=== PATIENT | female | born 1960 | race Caucasian/White ===

== ENCOUNTER 2024-04-15 10:58 | Outpatient (RCR) | payer MEDICAID, SELFPAY ==
--- NOTE | 2024-04-17 18:34 | CTCFLWUP_ITS ---
Patient: GORGE CEJA : 1960 Page 7 of 7 FOLLOW UP NOTE DATE OF SERVICE: 04/15/2024 NAME: GORGE CEJA ACCOUNT: [id number] : 1960 AGE: 63 DIAGNOSIS: Recent right thyroid middle lobe biopsy suspicious for follicular neoplasm (IV) Status post thyroid surgery in [place]. 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 REASON FOR TODAY?S VISIT: This is office follow-up visit. Ms. Ceja is here at [facility]. She is clinically doing very well. Denies any complaints. Denies any co ugh, chest pain, abdominal pain or leg cramps. Ambulating with the help of a walker. Has good appet ite and good energy levels. Recent CT scan of the abdomen and pelvis with IV contrast was negative f or recurrence. HISTORY OF PRESENT ILLNESS: Gorge Ceja is a 63-year-old ENG speaking female with hi story of hypertension has been having postmenopausal spotting since March 2019. She had Pap smear s done about 30 years ago. 09/01/2019 patient had vaginal examination and Pap smear done. A 4 cm cervical mass involving the righ t portion of the cervix and the anterior lip of the cervix was noted. Biopsies taken from the cervix showed squamous cell carcinoma with focal early invasion. Carcinoma extends into underlying crypts? glands. Tumor was P 16+. 09/29/2019 patient was seen by radiation oncologist Dr. Andres here at our cancer center. 10/13/2019: CT scan of the abdomen and pelvis with IV contrast? 10/23/2019: PET CT scan? 11/01/2019?12/24/2019: Patient was treated with chemoradiation. For chemotherapy she received 6 weekly doses of cisplatin. She received 5040 cGy of radiation. Brachii therapy to be scheduled by Dr. Andres. 03/02/2020?03/03/2020: Patient had brachytherapy at [facility]. 05/12/2020: PET CT scan? 06/27/2020: CT scan of the abdomen and pelvis with IV contrast? 02/13/2021: CT scan of the abdomen and pelvis with IV contrast? 11/16/2021: CT scan of the chest abdomen and pelvis? 05/15/2022: CT scan of the chest abdomen and pelvis with IV contrast? 06/06/2022: Thyroid ultrasound 06/21/2022: I-123 nuclear thyroid scan? 09/19/2022: Sono-guided fine-needle aspiration of the right thyroid nodule?primary?follicular neoplasm ([place] category 4) 11/28/2022: CT chest w con 11/28/2022: CT soft tissue neck w con 01/10/2023: PET/CT scan? 02/04/2023: Right thyroid lobectomy? 09/24/2023: CT scan of the abdomen and pelvis with IV contrast PAST MEDICAL HISTORY: tia???cervical??ca??hbp PAST SURGICAL HISTORY: gallbladder MEDICATIONS: 1. calcium - 600 mg 1 Capsule Daily 2. Flexeril - 10 mg 1 tab Every day before sleep 3. gabapentin - 300 mg Daily 4. losartan-hydrochlorothiazide - 100-25 mg 1 tab Daily 5. Pepcid - 20 mg 1 tab Twice a Day 6. Vitamin D3 - 400 unit 1 Capsule Weekly?Palabra Meds? Medications Last Reconciled by Alejandra Moses MA on 10/14/2023 ALLERGIES: Penicillin V REVIEW OF SYSTEMS:?Clone ROS? Neurological: No headache, seizures or blurring of vision. Gastrointestinal: No nausea, vomiting, diarrhea or constipation. Cardiovascular: No palpitations or angina pains. Respiratory: No cough, chest pain or shortness of breath. PHYSICAL EXAMINATION:?ClonePE? VITAL SIGNS: A and O times 4 Neck is supple. No adenopathy in the neck, axillary and inguinal region. Chest clear to auscultation. No wheezes or rails audible. CVS rhythm regular. Abdomen is soft. No hepatosplenomegaly palpable. No areas of tenderness present. Extremities no cl ubbing or cyanosis. ASSESSMENT and Plan : 1. 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 Status post chemoradiation as described above. Benign multinodular thyroid s/p right lobe thyroidectomy. Recent PET CT scan on 01/10/2023 did not show any metastatic disease. 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 ([place] 4). Recent CT scan of the chest abdomen and pelvis with contrast (05/15/2022) did not show any evidence o f metastatic disease. No clinical or radiological evidence of recurrence of her cervix cancer. 2. Hypertension 3. Acid reflux issues clinic in 3 months with labs for follow-up Electronically Signed by: Vida {Object.Sanct_ID*PnP.NameFL@M}, {Object.Sanct_ID*PnP.Suffix@U} D: {Object.Sanct_Date} T: {Object.Sanct_Time} CC: Cristina?Geovani,? PCP: Cristina Olivo Referring: Cristina Olivo This document was completed utilizing speech recognition software. Grammatical errors, random word in sertions, pronoun errors, and incomplete sentences are an occasional consequence of this system due t o software limitations, ambient noise, and hardware issues. Any formal questions or concerns about th e content, text or information contained within the body of this dictation should be directly address ed to the provider for clarification.
== END 2024-04-24 23:59 | disposition home or self-care (01) ==
LOC: SCTC 10:58
PROVIDERS: PCP Family Medicine; Referring Provider Family Medicine; Visit Provider Internal Medicine Hematology & Oncology
DX: Z08 Encounter for follow-up examination after completed treatment for malignant neoplasm (principal); Z85.41 Personal history of malignant neoplasm of cervix uteri; Z92.3 Personal history of irradiation; E89.0 Postprocedural hypothyroidism; I10 Essential (primary) hypertension; K21.9 Gastro-esophageal reflux disease without esophagitis
CPT/HCPCS: 99212; G0463

== ENCOUNTER 2024-07-15 10:55 | Outpatient (RCR) | payer MEDICAID, SELFPAY ==
--- NOTE | 2024-07-15 15:10 | CTCFLWUP_ITS ---
Patient: VICTORIA CEJA : 1960 Page 2 of 2 FOLLOW UP NOTE DATE OF SERVICE: 07/15/2024 NAME: VICTORIA CEJA ACCOUNT: [id number] : 1960 AGE: 64 INTERVAL HISTORY: No new complaints concerning for recurrence ONCOLOGY HISTORY: DIAGNOSIS: Malignant neoplasm of overlapping sites of cervix uteri [ICD10] C53.8 -Recent right thyroid middle lobe biopsy suspicious for follicular neoplasm (IV) Status post thyroid surgery in [place]. 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 completed on 03/03/2020. 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 completed on 03/03/2020. TREATMENT HISTORY: Care?Plan Start?Date Cycle Day Intent CISplatin?40?mg/m*2?+?Radiation?Therapy?-?Primary,?Adj,?Rec 11/01/2019 1 7 Definitive HISTORY OF PRESENT ILLNESS: Victoria Ceja is a 64-year-old ENG speaking female with history of hypertension has been having postmenopausal spotting since March 2019. She had Pap smears done about 30 years ago. 09/01/2019 patient had vaginal examination and Pap smear done. A 4 cm cervical mass involving the right portion of the cervix and the anterior lip of the cervix was noted. Biopsies taken from the cervix showed squamous cell carcinoma with focal early invasion. Carcinoma extends into underlying crypts?glands. Tumor was P 16+. 09/29/2019 patient was seen by radiation oncologist Dr. Andres here at our cancer center. 10/13/2019: CT scan of the abdomen and pelvis with IV contrast? 10/23/2019: PET CT scan? 11/01/2019?12/24/2019: Patient was treated with chemoradiation. For chemotherapy she received 6 weekly doses of cisplatin. She received 5040 cGy of radiation. Brachii therapy to be scheduled by Dr. Andres. 03/02/2020?03/03/2020: Patient had brachytherapy at [facility]. 05/12/2020: PET CT scan? 06/27/2020: CT scan of the abdomen and pelvis with IV contrast? 02/13/2021: CT scan of the abdomen and pelvis with IV contrast? 11/16/2021: CT scan of the chest abdomen and pelvis? 05/15/2022: CT scan of the chest abdomen and pelvis with IV contrast? 06/06/2022: Thyroid ultrasound 06/21/2022: I-123 nuclear thyroid scan? 09/19/2022: Sono-guided fine-needle aspiration of the right thyroid nodule?primary?follicular neoplasm ([place] category 4) 11/28/2022: CT chest w con 11/28/2022: CT soft tissue neck w con 01/10/2023: PET/CT scan? 02/04/2023: Right thyroid lobectomy? 09/24/2023: CT scan of the abdomen and pelvis with IV contrast OTHER MEDICAL HISTORY/CONDITIONS: FAMILY HISTORY: ?Clone Family Hx? 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 amlodipine - 5 mg 1 tab Daily 2. calcium - 600 mg 1 Capsule Daily 3. Flexeril - 10 mg 1 tab Every day before sleep 4. gabapentin - 300 mg Daily 5. losartan-hydrochlorothiazide - 100-25 mg 1 tab Daily 6. omeprazole - 20 mg 1 Capsule Daily 7. vitamin D3-vitamin K2 - 125 mcg (5,000 unit)-100 mcg 1 Capsule Daily?Palabra Meds? Medications Last Reconciled by Shabnam Jennings MA on 07/15/2024 ALLERGIES: Penicillin V REVIEW OF SYSTEMS: A complete 14-point review of systems was performed and is negative except as noted in interval history. PHYSICAL EXAMINATION: VITAL SIGNS: Temperature?97.9, B/P?133/85, Oxygen?Saturation?97% Weight?223?lbs PAIN: 0 - No pain ECOG Performance Status: 0 - Asymptomatic and fully active GENERAL APPEARANCE: Appears well, in no apparent distress, appropriately interactive. HEENT: Normocephalic, no temporal wasting, normal conjunctiva, no scleral icterus, normal hearing, lips without lesions, neck normal range of motion. CARDIOVASCULAR: Not assessed. PULMONARY: Normal respiratory effort, no respiratory distress or use of accessory muscles, speaking in full sentences, no tachypnea. EXTREMITIES: No pedal edema or cyanosis. SKIN: Normal skin appearance. NEUROLOGIC: Alert and oriented x4. PSHYCHIATRIC: Appropriate affect, mood normal, behavior normal, intact thought and speech. 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 Status post chemoradiation as described above. Benign multinodular thyroid s/p right lobe thyroidectomy. Recent PET CT scan on 01/10/2023 did not show any metastatic disease. 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 ([place] 4). Recent CT scan of the chest abdomen and pelvis with contrast (05/15/2022) did not show any evidence of metastatic disease. No clinical or radiological evidence of recurrence of her cervix cancer. 09/24/2023 CT scan chest abdomen pelvis negative for any interval metastatic disease Clinically no evidence of recurrence Advised to follow-up with gynecology for pelvic examination Discussed risk of vagina as well as anal HPV positive cancer Referral placed to gynecology Hypertension Acid reflux issues ORDERS: CT scan chest abdomen pelvis with IV contrast ordered Referral placed for gynecology for pelvic exam CBC CMP CA125 RETURN TO CLINIC: In 6 months BILLING AND COMPLIANCE: I reviewed external records from providers outside my specialty as summarized above. I spent a total of 50 minutes on this patient?s care on the day of their visit excluding time spent related to any billed procedures. This time includes time spent with the patient as well as time spent documenting in the medical record, reviewing patients records and tests, obtaining history, placing orders, communicating with other healthcare professionals, counseling the patient, family or caregiver, and/or care coordination for the diagnoses above. Electronically Signed by: Gianni Mcpherson MD T: 3:08 PM CC: Cristina?Geovani,? PCP: Risa Whitehead Referring: Risa Whitehead This document was completed utilizing speech recognition software. Grammatical errors, random word insertions, pronoun errors, and incomplete sentences are an occasional consequence of this system due to software limitations, ambient noise, and hardware issues. Any formal questions or concerns about the content, text or information contained within the body of this dictation should be directly addressed to the provider for clarification.
== END 2024-07-23 23:59 | disposition home or self-care (01) ==
LOC: SCTC 10:55
PROVIDERS: PCP Family Medicine; Referring Provider Family Medicine; Visit Provider Internal Medicine Hematology & Oncology
DX: Z08 Encounter for follow-up examination after completed treatment for malignant neoplasm (principal); Z85.41 Personal history of malignant neoplasm of cervix uteri; I10 Essential (primary) hypertension; K21.9 Gastro-esophageal reflux disease without esophagitis; Z92.21 Personal history of antineoplastic chemotherapy; Z92.3 Personal history of irradiation
CPT/HCPCS: 99212; G0463

== ENCOUNTER → 2024-08-06 | Outpatient (CLI) | payer MEDICAID, SELFPAY ==
--- NOTE | 2024-08-06 16:00 | XR_ITS ---
Examination: CT chest with intravenous contrast CT abdomen with intravenous contrast CT pelvis with intravenous contrast 2-D coronal and sagittal reconstructions Time of exam: August 06, 2024 at [address] chest February 2024, CT abdomen September 23, 2023 Indications: Diagnosis malignant neoplasm cervix uterus diagnosis 2020, undergoing chemotherapy 6 months, 2 mm pulmonary nodule lingular segment left upper lobe on CT chest February 2024 CTDI: vol (mGy) : 30.41 DLP: (mGycm): 1280 Technique: Multiple axial images of the chest, abdomen and pelvis with intravenous contrast, 3.0 mm slice thickness. Images obtained post intravenous injection Isovue 370 60 cc. 2-D sagittal and coronal reconstructions. Low dose protocols were performed. One or more of the following dose reduction techniques were used; automated exposure control, adjustment of the mA and/or KV according to patient size, use of iterative reconstruction technique. Findings: Thoracic aortic calcification no aneurysmal dilatation No pulmonary artery filling defects No mediastinal lymphadenopathy 6 mm soft pulmonary nodule right upper lobe image 164 Stable 2 mm pulmonary nodule anterior segment No pneumonia or pulmonary edema Retrocardiac gastric hernia Stable right lobe liver cyst Splenomegaly AP dimension 14 cm No pancreatic mass Liver is mildly irregular in contour Atrophic left kidney with significant scarring Abdominal aortic calcification no effervescent dilatation 25 mm fat-containing umbilical hernia Colonic diverticulosis. Atrophic uterus No pathologic abdominal or pelvic lymphadenopathy Urinary bladder intact Severe osteopenia with chronic compression Impression: New 6 mm pulmonary nodule right upper lobe compared to CT chest March 02, 2024, recommend continued 6 month follow-up CT chest without contrast Mild splenomegaly No interval abdominal or pelvic lymphadenopathy
== END | disposition home or self-care (01) ==
PROVIDERS: Referring Provider Internal Medicine Hematology & Oncology; Visit Provider Internal Medicine Hematology & Oncology
DX: R91.1 Solitary pulmonary nodule (principal); R16.1 Splenomegaly, not elsewhere classified; C53.8 Malignant neoplasm of overlapping sites of cervix uteri
CPT/HCPCS: 71260; 74177; A4649; Q9967

== ENCOUNTER 2024-08-30 09:44 | Emergency (ER) | payer MEDICAID, SELFPAY ==
[2024-08-30 09:45] VITALS: BMI 32.8
[2024-08-30 10:00] VITALS: BP 146/89; PULSE 109; RESP 16; TEMP 36.6; O2SAT 98
--- NOTE | 2024-08-30 10:10 | XR_ITS ---
Examination: Duplex scan of the lower extremity, unilateral right complete Date and time of exam: August 30, 2024 1057 hours INDICATIONS: Right lower leg swelling and pain beginning 4 days ago Technique: Duplex scan of the extremity veins using B-mode/grayscale imaging and Doppler spectral analysis and color flow Attention is directed to internal echogenicity, compression and augmentation involving these veins, color flow assessment, spectral analysis Findings: Major deep venous structures in the extremity demonstrate normal course and caliber. There is no evidence of deep vein thrombosis. Normal color flow and spectral analysis Impression: Negative for DVT..
--- NOTE | 2024-08-30 10:11 | PD.EDRME ---
Rapid Medical Screening Exam E Arrival date/time: 08/30/24 09:44 64-year-old female with a history of hypertension presents to the emergency room with a chief complaint of right lower extremity swelling and pain behind her right knee. Patient states she was sent over by her primary care provider to rule out a DVT. I have greeted and performed a focused initial assessment of this patient. A comprehensive ED assessment and evaluation of the patient, analysis of all test results, and completion of the medical decision making process will be conducted by additional ED providers. Chief Complaint: Extremity Injury, Lower Time Seen by Provider: 08/30/24 10:11 Vital signs: Vital Signs Temperature 97.9 F 08/30/24 10:00 Pulse Rate 109 H 08/30/24 10:00 Respiratory Rate 16 08/30/24 10:00 Blood Pressure 146/89 H 08/30/24 10:00 Pulse Oximetry (%) 98 08/30/24 10:00 Oxygen Delivery Method Room Air 08/30/24 10:00 Vital signs reviewed by provider: Yes
--- NOTE | 2024-08-30 10:55 | PC.NURSE ---
CALLED FROM LOBBY AND NO ANSWER
--- NOTE | 2024-08-30 11:04 | PC.NURSE ---
CALLED FROM LOBBY AND NO ANSWER. PT NOT FOUND OUTSIDE THE E.D. OR IN THE E.D. LOBBY
[2024-08-30 11:17] LABS: Basophils % (Auto) 1 % (0-2.5); Eosinophils % (Auto) 1 % (0-10); Immature Granulocytes % (Auto) 0 % (0-0); Immature Granulocytes Auto 0.01 Thou/mm3 (0.00-0.00); Lymphocytes % (Auto) 22 % (10-50); Mean Corpuscular HGB Conc 31.7 g/dl (31.0-37.0); Mean Corpuscular Hemoglobin 28.1 pg (25.0-35.0); Mean Corpuscular Volume 89 fL (80-100); Monocytes # (Auto) 0.2 Thou/mm3 (0.0-0.8); Monocytes % (Auto) 5 % (0-12); Neutrophils # (Auto) 3.4 Thou/mm3 (1.8-7.7); Neutrophils % (Auto) 72 % (37-80); Nucleated Red Blood Cell % 0 /100 WBC (0); Platelet Count 217 Thou/mm3 (140-440); RDW Standard Deviation 53.1 fL (36.4-46.3); Red Blood Count 4.62 Miln/mm3 (4.00-5.20); White Blood Count 4.7 Thou/mm3 (3.6-11.0)
[2024-08-30 11:20] VITALS: BP 138/84; PULSE 102; RESP 16; TEMP 36.7; O2SAT 99
--- NOTE | 2024-08-30 11:24 | EDNOTE_ITS ---
<Statement entered by Eli Cantor MD - 08/30/24 17:53> As co-signing physician, I was present and available for consult prn. I concur with the plan and care as documented by the midlevel provider. ED General RME/HPI General Chief complaint: Extremity Injury, Lower Stated complaint: SENT BY PCP R/O BLOOD CLOT TO RLE Time Seen by Provider: 08/30/24 10:11 Arrival date/time: 08/30/24 09:44 This is The ankle with mild swelling and mild calf tenderness HPI ongoing for the past week denies fever chills shortness of breath difficulty breathing is no pain in the left leg. RME / HPI RME / HPI narrative: 08/30/24 09:44 64-year-old female with a history of hypertension presents to the emergency room with a chief complaint of right lower extremity swelling and pain behind her right knee. Patient states she was sent over by her primary care provider to rule out a DVT. I have greeted and performed a focused initial assessment of this patient. A comprehensive ED assessment and evaluation of the patient, analysis of all test results, and completion of the medical decision making process will be conducted by additional ED providers. Related Data Home Medications ?Medication ?Instructions ?Recorded ?Confirmed calcium carbonate 600 mg PO QDAY 07/10/2206/26 cyclobenzaprine 10 mg tablet 10 mg PO TID PRN Spasms 0 07/10/22 07/10/22 ergocalciferol (vitamin D2) 1,250 50,000 unit PO QWEEK 07/10/22 07/10/22 mcg (50,000 unit) capsule famotidine 20 mg tablet (Pepcid AC) 20 mg PO BID PRN s tomach acid 07/10/22 07/10/22 gabapentin 300 mg capsule 300 mg PO TID PRN Pain 07/1007/10/22 losartan 50 mg-hydrochlorothiazide 1 tab PO QDAY 07/1007/10/22 12.5 mg tablet Allergies Allergy/AdvReac Type Severity Reaction Status Date / Time fentanyl AdvReac Intermediate Vomiting Verified 08/30/24 09:45 Review of Systems Review of Systems Narrative Review of Systems: GEN: No fever, no chills, no weight loss EYES: No discharge, no visual changes, no pain HEENT: No ear pain, no congestion, no sore throat PULM: No shortness of breath, no cough, no congestion CV: No chest pain, no dyspnea on exertion, no palpitations GI: No nausea, no vomiting, no diarrhea, no pain, no constipation : No frequency, no urgency, no dysuria MUSC/SKEL: No joint pain, no back pain,+swelling SKIN: No rash PSYCH: No hallucinations, no depression HEME/LYMPH: No easy bleeding or bruising tendencies NEURO: No weakness, no headache ED Exam Narrative Physical exam: [General: Obese not in any acute distress Head normocephalic HEENT: Within acceptable limits Neck is supple nontender Chest equal chest rise nontender to palpation Respiratory: Clear to auscultation no wheezes crackles or rubs CV: Rate rhythm is regular no murmurs rubs or clicks Back: No CVA tenderness no spinous process tenderness from cervical spine thoracic and lumbar spine Skin: Intact no petechiae rash induration ulceration or crepitus Extremities: Right lower extremity patient has very minor edema to the anterior portion of the ankle, very mild tenderness to the calf. no posterior fossa tenderness with palpation full range of motion cap refills less than 2 seconds neurosensory intact no edema in the dorsum of the foot. Moving all extremity against resistance cap refill less than 2 seconds neurosensory intact Neuro: Awake alert oriented x3 Glascow coma 15 no focal deficits] Course Quality Measures none Orders Category Date Time Status US venous doppler LE RT Stat Exams 08/30/24 10:10 Taken CBC Stat Lab 08/30/24 10:14 Completed CMP [Comprehensive Metabolic Panel] Stat Lab 08/30/24 10:14 Completed PT [Prothrombin Time with INR] Stat Lab 08/30/24 10:14 Completed PTT [Partial Thromboplastin Time] Stat Lab 08/30/24 10:14 Completed Vital Signs Vital signs: Vital Signs Temperature 97.9 F 08/30/24 10:00 Pulse Rate 109 H 08/30/24 10:00 Respiratory Rate 16 08/30/24 10:00 Blood Pressure 146/89 H 08/30/24 10:00 Pulse Oximetry (%) 98 08/30/24 10:00 Oxygen Delivery Method Room Air 08/30/24 10:00 [facility] Patient data External records reviewed:: [facility] previous records Clinical information provided by:: patient Social determinants that could affect healthcare access:: none Patient has the following chronic illnesses:: Hypertension How is presenting disease/condition affected by chronic disease/condition?: u neffected by Evaluation data The following diagnostics were reviewed and interpreted by me:: lab results and radiology exam(s) Lab and/or radiology exams considered but not ordered:: CBC shows no acute leukocytosis anemia thrombocytopenia Coags within acceptable limits CMP shows no significant electrolyte imbalances renal impairment transaminitis or T. bili elevation Ultrasound is negative for DVT. Interpretation Summary: No acute finding will discharge the patient home with very minor lower extremity swelling. Medications Medications considered but not ordered:: None Medication administrations:: None Consultations Consultation(s) initiated? (list below): No Diagnosis Differential Diagnosis ED Complaint MDM: DVT cellulitis lower extremity edema Most likely diagnosis given after review of the tests above:: Ankle edema Admission Indicated Admission indicated?: not indicated Explain why admission is indicated or not indicated:: Stable for discharge Admission Request Was there a request for admission?: No Disposition Plan Disposition Plan: Discharge Discharge Attestation Discharge Attestation: The patient and all family members were given an opportunity to ask questions and understood the discharge instructions. Discharge instructions specifically effects, indications for sooner follow up or return to the emergency department, and the expected course of current diagnosis. Patient condition: Stable Medical Decision Making Differential Diagnosis Differential Diagnosis: DVT cellulitis lower extremity edema Lab Data 08/30/24 10:14 08/30/24 10:14 Labs: Lab Results 08/30/24 Range/Units 10:14 WBC 4.7 (3.6-11.0) Thou/mm3 RBC 4.62 (4.00-5.20) Miln/mm3 Hgb 13.0 (12.0-16.0) g/dL Hct 41.0 (36.0-46.0) % MCV 89 (80-100) fL MCH 28.1 (25.0-35.0) pg MCHC 31.7 (31.0-37.0) g/dl RDW Std Deviation 53.1 H (36.4-46.3) fL Plt Count 217 (140-440) Thou/mm3 Neut % (Auto) 72 (37-80) % Lymph % (Auto) 22 (10-50) % [place] % (Auto) 5 (0-12) % Eos % (Auto) 1 (0-10) % Baso % (Auto) 1 (0-2.5) % Neut # (Auto) 3.4 (1.8-7.7) Thou/mm3 Lymph # (Auto) 1.0 (1.0-4.8) Thou/mm3 [place] # (Auto) 0.2 (0.0-0.8) Thou/mm3 Eos # (Auto) 0.0 (0.0-0.5) Thou/mm3 Baso # (Auto) 0.0 (0.0-0.2) Thou/mm3 Immature Gran # (Auto) 0.01 H (0.00-0.00) Thou/mm3 Absolute Nucleated RBC 0.00 (0.00-0.00) Thou/mm3 Immature Gran % 0 (0-0) % Nucleated RBC % 0 (0) /100 WBC PT 11.2 (9.0-12.2) Seconds INR 1.0 (0.9-1.3) APTT 27.3 (22.0-36.0) Seconds Sodium 141 (136-145) mMol/L Potassium 3.6 (3.4-5.1) mMol/L Chloride 100 (98-107) mMol/L Carbon Dioxide 30.1 (20.0-31.0) mMol/L Anion Gap 11 (7-16) BUN 7 L (9-23) mg/dL Creatinine 0.9 (0.6-1.3) mg/dL Estim Creat Clear Calc 81.9 (>60) mL/min eGFR > 60 (60 - ) See Note BUN/Creatinine Ratio 8 L (12-20) Ratio Glucose 114 H (74-106) mg/dL Calculated Osmolality 280 (275-295) Calcium 10.0 (8.3-10.6) mg/dL Corrected Calcium 10.0 (8.5-10.1) mg/dL Total Bilirubin 0.3 (0.3-1.2) mg/dL AST 14 (0-34) U/L ALT 8 L (10-49) U/L Alkaline Phosphatase 96 (46-116) U/L Total Protein 7.4 (5.7-8.2) gm/dL Albumin 4.2 (3.4-4.8) gm/dL Globulin 3.2 (2.3-3.5) gm/dL Albumin/Globulin Ratio 1.3 (1.2-2.2) Discharge Plan Plan Patient Disposition: HOME (Self Care) Patient condition on transfer: Stable Prescriptions/Referrals Prescriptions/Med Rec: No Action cyclobenzaprine 10 mg tablet 10 mg PO TID PRN (Reason: Spasms) Patient Comments: TAKE 1 TABLET BY MOUTH THREE TIMES A DAY NEEDED FOR MUSCULAR PAIN calcium carbonate 600 mg calcium (1,500 mg) tablet 600 mg PO QDAY Patient Comments: TAKE 1 TABLET BY MOUTH EVERY DAY gabapentin 300 mg capsule 300 mg PO TID PRN (Reason: Pain) ergocalciferol (vitamin D2) 1,250 mcg (50,000 unit) capsule 50,000 unit PO QWEEK Patient Comments: TAKE ONE CAPSULE VIA ORAL ROUTE ONCE A WEEK. Rx Instructions: Sundays. losartan-hydrochlorothiazide 50-12.5 mg tablet 1 tab PO QDAY Patient Comments: TAKE 1 TABLET BY MOUTH EVERY DAY famotidine [Pepcid AC] 20 MG tablet 20 mg PO BID PRN (Reason: stomach acid) Referrals: Fabrice Maxwell MD [Primary Care Provider] - In 1 week Problem List Clinical Impression: Ankle edema Patient/Caregiver Discharge Instructions Print Language: [place] Stand Alone Forms: Pepper Award Info., Patient Portal Info Letter PA/ACCOUNTING INTERN Supervising Physician PA/ACCOUNTING INTERN Supervising Physician: Junior Araujo ENP
[2024-08-30 11:27] LABS: Partial Thromboplastin Time 27.3 Seconds (22.0-36.0); Prothrombin Time 11.2 Seconds (9.0-12.2)
[2024-08-30 11:41] LABS: Alanine Aminotransferase 8 U/L (10-49); Albumin, Serum 4.2 gm/dL (3.4-4.8); Albumin/Globulin Ratio 1.3 (1.2-2.2); Alkaline Phosphatase 96 U/L (46-116); Anion Gap 11 (7-16); Aspartate Amino Transferase 14 U/L (0-34); BUN/Creatinine Ratio 8 Ratio (12-20); Bilirubin,Total 0.3 mg/dL (0.3-1.2); Blood Urea Nitrogen 7 mg/dL (9-23); Carbon Dioxide 30.1 mMol/L (20.0-31.0); Chloride 100 mMol/L (98-107); Creatinine (Component) 0.9 mg/dL (0.6-1.3); Estimated Creatinine Clearance 81.9 mL/min (>60); Globulin 3.2 gm/dL (2.3-3.5); Glucose 114 mg/dL (74-106); Osmolality,Calculated 280 (275-295); Potassium 3.6 mMol/L (3.4-5.1); Sodium 141 mMol/L (136-145); Total Protein 7.4 gm/dL (5.7-8.2); eGFR > 60 See Note
== END 2024-08-30 12:28 | disposition home or self-care (01) ==
PROVIDERS: Nurse Practitioner Family; Emergency Provider Emergency Medicine; PCP Student in an Organized Health Care Education/Training Program
DX: R60.0 Localized edema (principal)
CPT/HCPCS: 36415; 80053; 85025; 85610; 85730; 93971; 99284

== ENCOUNTER 2025-01-12 11:24 | Outpatient (RCR) | payer MEDICAID, SELFPAY ==
[2025-01-11 14:54] LABS: Basophils # (Auto) 0.0 Thou/mm3 (0.0-0.2); Basophils % (Auto) 0 % (0-2.5); Eosinophils # (Auto) 0.1 Thou/mm3 (0.0-0.5); Eosinophils % (Auto) 2 % (0-10); Hematocrit 35.2 % (36.0-46.0); Hemoglobin 11.0 g/dL (12.0-16.0); Immature Granulocytes Auto 0.01 Thou/mm3 (0.00-0.00); Lymphocytes # (Auto) 1.2 Thou/mm3 (1.0-4.8); Lymphocytes % (Auto) 25 % (10-50); Mean Corpuscular HGB Conc 31.3 g/dl (31.0-37.0); Mean Corpuscular Hemoglobin 28.1 pg (25.0-35.0); Mean Corpuscular Volume 90 fL (80-100); Monocytes # (Auto) 0.3 Thou/mm3 (0.0-0.8); Monocytes % (Auto) 7 % (0-12); Neutrophils # (Auto) 3.0 Thou/mm3 (1.8-7.7); Neutrophils % (Auto) 66 % (37-80); Nucleated Red Blood Cell # 0.00 Thou/mm3 (0.00-0.00); Nucleated Red Blood Cell % 0 /100 WBC (0); Platelet Count 188 Thou/mm3 (140-440); RDW Standard Deviation 53.6 fL (36.4-46.3); Red Blood Count 3.91 Miln/mm3 (4.00-5.20); White Blood Count 4.6 Thou/mm3 (3.6-11.0)
[2025-01-11 15:25] LABS: Alanine Aminotransferase < 7 U/L (10-49); Albumin, Serum 3.9 gm/dL (3.4-4.8); Albumin/Globulin Ratio 1.6 (1.2-2.2); Alkaline Phosphatase 79 U/L (46-116); Anion Gap 9 (7-16); Aspartate Amino Transferase 12 U/L (0-34); BUN/Creatinine Ratio 14 Ratio (12-20); Bilirubin,Total 0.3 mg/dL (0.3-1.2); Blood Urea Nitrogen 11 mg/dL (9-23); Calcium 9.5 mg/dL (8.3-10.6); Calcium (Corrected) 9.6 mg/dL (8.5-10.1); Carbon Dioxide 29.4 mMol/L (20.0-31.0); Chloride 100 mMol/L (98-107); Creatinine (Component) 0.8 mg/dL (0.6-1.3); Globulin 2.5 gm/dL (2.3-3.5); Glucose 143 mg/dL (74-106); Osmolality,Calculated 277 (275-295); Potassium 3.4 mMol/L (3.4-5.1); Sodium 138 mMol/L (136-145); Total Protein 6.4 gm/dL (5.7-8.2); eGFR > 60 See Note
[2025-01-11 15:33] LABS: CA 125 7.0 U/mL (<30.2)
--- NOTE | 2025-01-12 14:30 | CTCFLWUP_ITS ---
Patient: GORGE CEJA : 1960 Page 6 of 8 FOLLOW UP NOTE DATE OF SERVICE: 01/12/2025 NAME: GORGE CEJA ACCOUNT: [id number] : 1960 AGE: 64 INTERVAL HISTORY: No new complaints concerning for recurrence. Patient was seen by doughnut icer but per patient was not physically examined. Patient is asking for referral to another doughnut icer. She says she was seen by physician radiology assistant who never examined her. ONCOLOGY HISTORY: DIAGNOSIS: Malignant neoplasm of overlapping sites of cervix uteri [ICD10] C53.8 -Recent right thyroid middle lobe biopsy suspicious for follicular neoplasm (IV) Status post thyroid surgery in [place]. 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 TREATMENT HISTORY: Care?Plan Start?Date Cycle Day Intent CISplatin?40?mg/m*2?+?Radiation?Therapy?-?Primary,?Adj,?Rec 11/01/2019 1 7 Definitive HISTORY OF PRESENT ILLNESS: Gorge Ceja is a 64-year-old ENG speaking female with history of hypertension has been having postmenopausal spotting since March 2019. She had Pap smears done about 30 years ago. 09/01/2019 patient had vaginal examination and Pap smear done. A 4 cm cervical mass involving the right portion of the cervix and the anterior lip of the cervix was noted. Biopsies taken from the cervix showed squamous cell carcinoma with focal early invasion. Carcinoma extends into underlying crypts?glands. Tumor was P 16+. 09/29/2019 patient was seen by radiation oncologist Dr. Mckenna abarca at our cancer center. 10/13/2019: CT scan of the abdomen and pelvis with IV contrast? 10/23/2019: PET CT scan? 11/01/2019?12/24/2019: Patient was treated with chemoradiation. For chemotherapy she received 6 weekly doses of cisplatin. She received 5040 cGy of radiation. Brachii therapy to be scheduled by Dr. Andres. 03/02/2020?03/03/2020: Patient had brachytherapy at [facility]. 05/12/2020: PET CT scan? 06/27/2020: CT scan of the abdomen and pelvis with IV contrast? 02/13/2021: CT scan of the abdomen and pelvis with IV contrast? 11/16/2021: CT scan of the chest abdomen and pelvis? 05/15/2022: CT scan of the chest abdomen and pelvis with IV contrast? 06/06/2022: Thyroid ultrasound 06/21/2022: I-123 nuclear thyroid scan? 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 02/04/2023: Right thyroid lobectomy? 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 amlodipine - 5 mg 1 tab Daily 2. Flexeril - 10 mg 1 tab Every day before sleep 3. gabapentin - 300 mg Every day before sleep 4. losartan-hydrochlorothiazide - 100-25 mg 1 tab Daily 5. omeprazole - 20 mg 1 Capsule Daily 6. vitamin D3-vitamin K2 - 125 mcg (5,000 unit)-100 mcg 1 Capsule Daily Medications Last Reconciled by Shabnam Jennings MA on 01/12/2025 ALLERGIES: fentanyl citrate REVIEW OF SYSTEMS: A complete 14-point review of systems was performed and is negative except as noted in interval history. PHYSICAL EXAMINATION: VITAL SIGNS: Temperature?99, B/P?126/75, Oxygen?Saturation?96% Weight?234?lbs (Change?since?01/11/25:?-0.2?lbs) PAIN: 0 - No pain ECOG Performance Status: None GENERAL APPEARANCE: Appears well, in no apparent distress, appropriately interactive. HEENT: Normocephalic, no temporal wasting, normal conjunctiva, no scleral icterus, normal hearing, lips without lesions, neck normal range of motion. CARDIOVASCULAR: Not assessed. PULMONARY: Normal respiratory effort, no respiratory distress or use of accessory muscles, speaking in full sentences, no tachypnea. EXTREMITIES: No pedal edema or cyanosis. SKIN: Normal skin appearance. NEUROLOGIC: Alert and oriented x4. PSHYCHIATRIC: Appropriate affect, mood normal, behavior normal, intact thought and speech. LABORATORY DATA: I have personally reviewed and interpreted each of the patient?s relevant lab tests, abnormal findings are below: Date 08/30/24 01/11/25 ??WHITE?BLOOD?COUNT?(Thou/mm3) ? 4.6 ??RED?BLOOD?COUNT?(Miln/mm3) ? 3.91?L ??HEMOGLOBIN?(gm/dl) ? 11.0?L ??HEMATOCRIT?(%) ? 35.2?L ??PLATELET?COUNT?(Thou/mm3) ? 188 ??NEUTROPHILS?%,?AUTO?(%) ? 66 ??LYMPH?%,?AUTO?(%) ? 25 ??NEUTROPHILS,?AUTO?(Thou/mm3) ? 3.0 ??GLUCOSE,RANDOM?(mg/dL) 114?H 143?H ??BLOOD?UREA?NITROGEN?(mg/dL) 7?L 11 ??CREATININE?(mg/dL) 0.90 0.80 ??SODIUM?(mmol/L) 141 138 ??POTASSIUM?(mmol/L) 3.6 3.4 ??CHLORIDE?(mmol/L) 100 100 ??CrCl?(CandG)?(ml/min) 103.49 122.28 ??AST/SGOT?(Unit/L) 14 12 ??ALT/SGPT?(Unit/L) 8?L <?7?L ??ALKALINE?PHOSPHATASE?(Unit/L) 96 79 ??BILIRUBIN,?TOTAL?(mg/dL) 0.3 0.3 ??PROTEIN?TOTAL?(gm/dl) 7.4 6.4 ??ALBUMIN,?SERUM?(gm/dl) 4.2 3.9 ??GLOBULIN?(gm/dl) 3.2 2.5 ??ALBUMIN/GLOBULIN?RATIO 1.3 1.6 ??CALCIUM,?SERUM?(mg/dL) 10.0 9.5 ??CALCIUM?SERUM?(CORRECTED)?(mg/dL) 10.0 9.6 ??CA?125?(O*)?(Unit/mL) ? 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 Status post chemoradiation as described above. Benign multinodular thyroid s/p right lobe thyroidectomy. Recent PET CT scan on 01/10/2023 did not show any metastatic disease. 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 (Fleming 4). Recent CT scan of the chest abdomen and pelvis with contrast (05/15/2022) did not show any evidence of metastatic disease. No clinical or radiological evidence of recurrence of her cervix cancer. 09/24/2023 CT scan chest abdomen pelvis negative for any interval metastatic disease 08/06/2024 CT scan negative Will order [facility] testing CT scan chest and abdomen pelvis ordered for [address] referral to gynecology in [place] for follow-up as patient need physical exam every 6 months As patient have lung nodules will also check for coccidiomycosis and TB. RTC in 6 months ORDERS: Order # Description [id number] CT Scan + Chest + With W/O Contrast [id number] Antibody; Coccidioides Immitis + QuantiFERON-TB Gold Plus ([employer] TEST:235478 CPT: 12483) [id number] [place] [id number] Scan + Abdomen and Pelvis + With W/O Contrast [id number] MD Follow Up 2 Months [id number] Iron Panel + Ferritin + Vitamin B-12 + Folic Acid; Serum + Parvovirus B19 viral load by quantitative PCR RETURN TO CLINIC: I reviewed the diagnosis, prognosis, and recommended treatment/procedure options with the patient (and/or their legal access service representative), including the potential benefits, risks, side effects and alternative therapies. We also discussed the option of no treatment and the possibility of clinical trial participation, if applicable. All questions were addressed, and they demonstrated understanding. They provided informed consent to proceed with the proposed plan of care. BILLING AND COMPLIANCE: I reviewed external records from providers outside my specialty as summarized above. I spent a total of 50 minutes on this patient?s care on the day of their visit excluding time spent related to any billed procedures. This time includes time spent with the patient as well as time spent documenting in the medical record, reviewing patients records and tests, obtaining history, placing orders, communicating with other healthcare professionals, counseling the patient, family or caregiver, and/or care coordination for the diagnoses above. Electronically Signed by: {Object.Sanct_ID*PnP.NameFL@M}, {Object.Sanct_ID*PnP.Suffix@U} D: {Object.Sanct_Date} T: {Object.Sanct_Time} CC: Cristina?Geovani,? PCP: Fabrice Maxwell Referring: Fabrice Maxwell This document was completed utilizing speech recognition software. Grammatical errors, random word insertions, pronoun errors, and incomplete sentences are an occasional consequence of this system due to software limitations, ambient noise, and hardware issues. Any formal questions or concerns about the content, text or information contained within the body of this dictation should be directly addressed to the provider for clarification.
== END 2025-01-23 23:59 | disposition home or self-care (01) ==
LOC: SCTC 11:24
PROVIDERS: PCP Student in an Organized Health Care Education/Training Program; Referring Provider Student in an Organized Health Care Education/Training Program; Visit Provider Internal Medicine Hematology & Oncology
DX: Z08 Encounter for follow-up examination after completed treatment for malignant neoplasm (principal); Z85.41 Personal history of malignant neoplasm of cervix uteri; Z92.21 Personal history of antineoplastic chemotherapy; Z92.3 Personal history of irradiation; E89.0 Postprocedural hypothyroidism; R91.8 Other nonspecific abnormal finding of lung field
CPT/HCPCS: 36591; 80053; 85025; 86304; 99212; A4216; J1642; G0463

== ENCOUNTER → 2025-02-15 | Outpatient (CLI) | payer MEDICAID, SELFPAY ==
[2025-02-14 10:06] LABS: Basophils # (Auto) 0.0 Thou/mm3 (0.0-0.2); Basophils % (Auto) 1 % (0-2.5); Eosinophils # (Auto) 0.1 Thou/mm3 (0.0-0.5); Eosinophils % (Auto) 2 % (0-10); Hematocrit 37.5 % (36.0-46.0); Hemoglobin 11.7 g/dL (12.0-16.0); Immature Granulocytes Auto 0.01 Thou/mm3 (0.00-0.00); Lymphocytes # (Auto) 1.2 Thou/mm3 (1.0-4.8); Lymphocytes % (Auto) 26 % (10-50); Mean Corpuscular HGB Conc 31.2 g/dl (31.0-37.0); Mean Corpuscular Hemoglobin 28.2 pg (25.0-35.0); Mean Corpuscular Volume 90 fL (80-100); Monocytes # (Auto) 0.3 Thou/mm3 (0.0-0.8); Monocytes % (Auto) 6 % (0-12); Neutrophils # (Auto) 3.1 Thou/mm3 (1.8-7.7); Neutrophils % (Auto) 65 % (37-80); Nucleated Red Blood Cell # 0.00 Thou/mm3 (0.00-0.00); Nucleated Red Blood Cell % 0 /100 WBC (0); Platelet Count 198 Thou/mm3 (140-440); RDW Standard Deviation 53.7 fL (36.4-46.3); Red Blood Count 4.15 Miln/mm3 (4.00-5.20); White Blood Count 4.7 Thou/mm3 (3.6-11.0)
[2025-02-14 10:21] LABS: Alanine Aminotransferase < 7 U/L (10-49); Albumin, Serum 4.1 gm/dL (3.4-4.8); Albumin/Globulin Ratio 1.4 (1.2-2.2); Alkaline Phosphatase 84 U/L (46-116); Anion Gap 8 (7-16); Aspartate Amino Transferase 14 U/L (0-34); BUN/Creatinine Ratio 9 Ratio (12-20); Bilirubin,Total 0.3 mg/dL (0.3-1.2); Blood Urea Nitrogen 8 mg/dL (9-23); Calcium 9.8 mg/dL (8.3-10.6); Calcium (Corrected) 9.8 mg/dL (8.5-10.1); Carbon Dioxide 31.3 mMol/L (20.0-31.0); Chloride 101 mMol/L (98-107); Creatinine (Component) 0.9 mg/dL (0.6-1.3); Globulin 3.0 gm/dL (2.3-3.5); Glucose 100 mg/dL (74-106); Osmolality,Calculated 277 (275-295); Potassium 4.3 mMol/L (3.4-5.1); Sodium 140 mMol/L (136-145); Total Protein 7.1 gm/dL (5.7-8.2); eGFR > 60 See Note
--- NOTE | 2025-02-15 11:30 | XR_ITS ---
Examination: CT abdomen, without intravenous contrast. CT pelvis, without intravenous contrast. CT abdomen, with intravenous contrast. CT pelvis, with intravenous contrast. 2-D sagittal coronal reconstructions. Date and time of exam:February 15, 2025, 1150 hours, comparison CT chest abdomen pelvis August 06 2024 March 12, 2024, CT abdomen pelvis September 23, 2023, PET CT scan January 09, 2023 INDICATIONS: Diagnosis malignant neoplasm overlapping sites of cervix, restaging CTDI: vol (mGy) 27.8 DLP: (mGycm) 1629 Technique: Multiple 3.0 axial images of the abdomen and pelvis without intravenous contrast, 3.0 mm slice thickness. Multiple 3.0 postcontrast images abdomen and pelvis also obtained, post intravenous injection 60 cc [id number] 2-D sagittal and coronal reconstructions. Low dose protocols were performed. One or more of the following dose reduction techniques were used; automated exposure control, adjustment of the mA and/or KV according to patient size, use of iterative reconstruction technique. Findings: Stable right lobe liver cyst Small retrocardiac gastric hernia No interval solid liver or splenic lesions Hepatomegaly 18.5 cm Splenomegaly AP dimension 14.7 cm Absent gallbladder No extra hepatic biliary tract dilatation No pancreatic or adrenal mass Severe scarring left kidney, atrophic left kidney No renal or ureteral calculi, no hydronephrosis No interval abdominal or pelvic lymphadenopathy No pericecal inflammatory change Scattered colonic diverticulosis, no diverticulitis No interval pelvic mass Urinary bladder intact Severe osteopenia with prominent lumbar spondylosis Chronic osteoporotic moderate compression L5 IMPRESSION: Hepatosplenomegaly No interval abdominal lymphadenopathy Atrophic left kidney with severe scarring left kidney No hydronephrosis No pelvic mass
== END | disposition home or self-care (01) ==
LOC: CCTX 11:25
PROVIDERS: PCP Student in an Organized Health Care Education/Training Program; Referring Provider Internal Medicine Hematology & Oncology; Visit Provider Internal Medicine Hematology & Oncology
DX: R16.2 Hepatomegaly with splenomegaly, not elsewhere classified (principal); N26.1 Atrophy of kidney (terminal); N28.89 Other specified disorders of kidney and ureter; C53.8 Malignant neoplasm of overlapping sites of cervix uteri
CPT/HCPCS: 36415; 74178; 80053; 85025; A4649; Q9967

== ENCOUNTER 2025-03-16 14:03 | Outpatient (RCR) | payer MEDICAID, SELFPAY ==
[2025-03-15 16:12] LABS: Basophils # (Auto) 0.0 Thou/mm3 (0.0-0.2); Basophils % (Auto) 0 % (0-2.5); Eosinophils # (Auto) 0.1 Thou/mm3 (0.0-0.5); Eosinophils % (Auto) 2 % (0-10); Hematocrit 34.2 % (36.0-46.0); Hemoglobin 11.0 g/dL (12.0-16.0); Immature Granulocytes Auto 0.01 Thou/mm3 (0.00-0.00); Lymphocytes # (Auto) 1.1 Thou/mm3 (1.0-4.8); Lymphocytes % (Auto) 24 % (10-50); Mean Corpuscular HGB Conc 32.2 g/dl (31.0-37.0); Mean Corpuscular Hemoglobin 28.4 pg (25.0-35.0); Mean Corpuscular Volume 88 fL (80-100); Monocytes # (Auto) 0.3 Thou/mm3 (0.0-0.8); Monocytes % (Auto) 6 % (0-12); Neutrophils # (Auto) 3.1 Thou/mm3 (1.8-7.7); Neutrophils % (Auto) 67 % (37-80); Nucleated Red Blood Cell # 0.00 Thou/mm3 (0.00-0.00); Nucleated Red Blood Cell % 0 /100 WBC (0); Platelet Count 192 Thou/mm3 (140-440); RDW Standard Deviation 52.8 fL (36.4-46.3); Red Blood Count 3.88 Miln/mm3 (4.00-5.20); White Blood Count 4.6 Thou/mm3 (3.6-11.0)
[2025-03-15 16:31] LABS: Ferritin 12 ng/mL (7.3-270.7); Iron 22 mcg/dL (50-170); Percent Iron Saturation 7 % (20-55); Total Iron Binding Capacity 303 mcg/dL (250-425); Unsaturated Iron Binding 281 (225-295)
[2025-03-15 16:33] LABS: Folate 6.90 ng/mL (>5.38); Vitamin B12 622 pg/mL (211-911)
[2025-03-15 16:39] LABS: Alanine Aminotransferase < 7 U/L (10-49); Albumin, Serum 4.1 gm/dL (3.4-4.8); Albumin/Globulin Ratio 1.9 (1.2-2.2); Alkaline Phosphatase 77 U/L (46-116); Anion Gap 10 (7-16); Aspartate Amino Transferase 11 U/L (0-34); BUN/Creatinine Ratio 11 Ratio (12-20); Bilirubin,Total 0.2 mg/dL (0.3-1.2); Blood Urea Nitrogen 9 mg/dL (9-23); Calcium 8.7 mg/dL (8.3-10.6); Calcium (Corrected) 8.7 mg/dL (8.5-10.1); Carbon Dioxide 27.6 mMol/L (20.0-31.0); Chloride 101 mMol/L (98-107); Creatinine (Component) 0.8 mg/dL (0.6-1.3); Globulin 2.2 gm/dL (2.3-3.5); Glucose 119 mg/dL (74-106); Osmolality,Calculated 277 (275-295); Potassium 3.6 mMol/L (3.4-5.1); Sodium 139 mMol/L (136-145); Total Protein 6.3 gm/dL (5.7-8.2); eGFR > 60 See Note
[2025-03-15 16:45] LABS: CA 125 8.0 U/mL (<30.2)
--- NOTE | 2025-03-17 10:47 | CTCFLWUP_ITS ---
Patient: GORGE CEJA : 1960 Page 6 of 8 FOLLOW UP NOTE DATE OF SERVICE: 03/16/2025 NAME: GORGE CEJA ACCOUNT: [id number] : 1960 AGE: 64 INTERVAL HISTORY: No new complaints concerning for recurrence. 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 ONCOLOGY HISTORY:?[facility] Hx? 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 TREATMENT HISTORY: Care?Plan Start?Date Cycle Day Intent CISplatin?40?mg/m*2?+?Radiation?Therapy?-?Primary,?Adj,?Rec 11/01/2019 1 7 Definitive VENOfer?200mg?IV?wkly?for?10?weeks 03/16/2025 1 70 Maintenance HISTORY OF PRESENT ILLNESS: Gorge Ceja is a 64-year-old ENG speaking female with history of hypertension has been having postmenopausal spotting since March 2019. She had Pap smears done about 30 years ago. 09/01/2019 patient had vaginal examination and Pap smear done. A 4 cm cervical mass involving the right portion of the cervix and the anterior lip of the cervix was noted. Biopsies taken from the cervix showed squamous cell carcinoma with focal early invasion. Carcinoma extends into underlying crypts?glands. Tumor was P 16+. 09/29/2019 patient was seen by radiation oncologist Dr. Mckenna abarca at our cancer center. 10/13/2019: CT scan of the abdomen and pelvis with IV contrast? 10/23/2019: PET CT scan? 11/01/2019?12/24/2019: Patient was treated with chemoradiation. For chemotherapy she received 6 weekly doses of cisplatin. She received 5040 cGy of radiation. Brachii therapy to be scheduled by Dr. Andres. 03/02/2020?03/03/2020: Patient had brachytherapy at [facility]. 05/12/2020: PET CT scan? 06/27/2020: CT scan of the abdomen and pelvis with IV contrast? 02/13/2021: CT scan of the abdomen and pelvis with IV contrast? 11/16/2021: CT scan of the chest abdomen and pelvis? 05/15/2022: CT scan of the chest abdomen and pelvis with IV contrast? 06/06/2022: Thyroid ultrasound 06/21/2022: I-123 nuclear thyroid scan? 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 02/04/2023: Right thyroid lobectomy? 09/24/2023: CT scan of the abdomen and pelvis with IV contrast OTHER MEDICAL HISTORY/CONDITIONS: FAMILY HISTORY: ?[facility] Family Hx? 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 MEDICATIONS: 1. amlodipine - 5 mg 1 tab Daily 2. Flexeril - 10 mg 1 tab Every day before sleep 3. gabapentin - 300 mg Every day before sleep 4. losartan-hydrochlorothiazide - 100-25 mg 1 tab Daily 5. omeprazole - 20 mg 1 Capsule Daily 6. vitamin D3-vitamin K2 - 125 mcg (5,000 unit)-100 mcg 1 Capsule Daily?[place] Meds? Medications Last Reconciled by Shabnam Whitehead MD on 03/16/2025 ALLERGIES: fentanyl citrate REVIEW OF SYSTEMS: A complete 14-point review of systems was performed and is negative except as noted in interval history. PHYSICAL EXAMINATION:?[facility] PE? VITAL SIGNS: Temperature?96.9, B/P?132/70, Oxygen?Saturation?95% Weight?233?lbs (Change?since?03/15/25:?-0.8?lbs) PAIN: 0 - No pain ECOG Performance Status: 0 - Asymptomatic and fully active GENERAL APPEARANCE: Appears well, in no apparent distress, appropriately interactive. HEENT: Normocephalic, no temporal wasting, normal conjunctiva, no scleral icterus, normal hearing, lips without lesions, neck normal range of motion. CARDIOVASCULAR: Not assessed. PULMONARY: Normal respiratory effort, no respiratory distress or use of accessory muscles, speaking in full sentences, no tachypnea. EXTREMITIES: No pedal edema or cyanosis. SKIN: Normal skin appearance. NEUROLOGIC: Alert and oriented x4. PSHYCHIATRIC: Appropriate affect, mood normal, behavior normal, intact thought and speech. LABORATORY DATA: I have personally reviewed and interpreted each of the patient?s relevant lab tests, abnormal findings are below: Date 03/15/25 ??WHITE?BLOOD?COUNT?(Thou/mm3) 4.6 ??RED?BLOOD?COUNT?(Miln/mm3) 3.88?L ??HEMOGLOBIN?(gm/dl) 11.0?L ??HEMATOCRIT?(%) 34.2?L ??PLATELET?COUNT?(Thou/mm3) 192 ??NEUTROPHILS?%,?AUTO?(%) 67 ??LYMPH?%,?AUTO?(%) 24 ??NEUTROPHILS,?AUTO?(Thou/mm3) 3.1 ??GLUCOSE,RANDOM?(mg/dL) 119?H ??BLOOD?UREA?NITROGEN?(mg/dL) 9 ??CREATININE?(mg/dL) 0.80 ??SODIUM?(mmol/L) 139 ??POTASSIUM?(mmol/L) 3.6 ??CHLORIDE?(mmol/L) 101 ??CrCl?(CandG)?(ml/min) 122.07 ??AST/SGOT?(Unit/L) 11 ??ALT/SGPT?(Unit/L) <?7?L ??ALKALINE?PHOSPHATASE?(Unit/L) 77 ??BILIRUBIN,?TOTAL?(mg/dL) 0.2?L ??PROTEIN?TOTAL?(gm/dl) 6.3 ??ALBUMIN,?SERUM?(gm/dl) 4.1 ??GLOBULIN?(gm/dl) 2.2?L ??ALBUMIN/GLOBULIN?RATIO 1.9 ??CALCIUM,?SERUM?(mg/dL) 8.7 ??CALCIUM?SERUM?(CORRECTED)?(mg/dL) 8.7 ??CA?125?(O*)?(Unit/mL) 8.0 ??TOTAL?IRON?BINDING?CAP?(S*)?(mcg/dL) 303 ??UNBOUND?IBC?(mcg/dL) 281 ASSESSMENT/PLAN:?Damaso Santiagoinder Assessment/Plan? 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 Status post chemoradiation as described above. Benign multinodular thyroid s/p right lobe thyroidectomy. Recent PET CT scan on 01/10/2023 did not show any metastatic disease. 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 ([place] 4). Recent CT scan of the chest abdomen and pelvis with contrast (05/15/2022) did not show any evidence of metastatic disease. No clinical or radiological evidence of recurrence of her cervix cancer. 09/24/2023 CT scan chest abdomen pelvis negative for any interval metastatic disease 08/06/[address] pending Patient is scheduled for labs for cocci and TB RTC with CT scan results ORDERS: Order # Description [id number] Comprehensive Metabolic Panel - 12 + CBC with Auto Diff + CEA [id number] Follow Up 3 Months RETURN TO CLINIC: I reviewed the diagnosis, prognosis, and recommended treatment/procedure options with the patient (and/or their legal community health program representative), including the potential benefits, risks, side effects and alternative therapies. We also discussed the option of no treatment and the possibility of clinical trial participation, if applicable. All questions were addressed, and they demonstrated understanding. They provided informed consent to proceed with the proposed plan of care. BILLING AND COMPLIANCE: I reviewed external records from providers outside my specialty as summarized above. I spent a total of 50 minutes on this patient?s care on the day of their visit excluding time spent related to any billed procedures. This time includes time spent with the patient as well as time spent documenting in the medical record, reviewing patients records and tests, obtaining history, placing orders, communicating with other healthcare professionals, counseling the patient, family or caregiver, and/or care coordination for the diagnoses above. Electronically Signed by: Gianni Mcpherson MD T: 10:45 AM CC: Cristina?Geovani? PCP: Natacha Coombs Referring: Natacha Coombs This document was completed utilizing speech recognition software. Grammatical errors, random word insertions, pronoun errors, and incomplete sentences are an occasional consequence of this system due to software limitations, ambient noise, and hardware issues. Any formal questions or concerns about the content, text or information contained within the body of this dictation should be directly addressed to the provider for clarification.
== END 2025-03-25 23:59 | disposition home or self-care (01) ==
LOC: SCTC 14:03
PROVIDERS: PCP Student in an Organized Health Care Education/Training Program; Referring Provider Student in an Organized Health Care Education/Training Program; Visit Provider Internal Medicine Hematology & Oncology
DX: Z08 Encounter for follow-up examination after completed treatment for malignant neoplasm (principal); Z85.41 Personal history of malignant neoplasm of cervix uteri; Z92.3 Personal history of irradiation; Z92.21 Personal history of antineoplastic chemotherapy; E04.1 Nontoxic single thyroid nodule
CPT/HCPCS: 36591; 80053; 82607; 82728; 82746; 83540; 83550; 85025; 86304; 99212; A4216; J1642; G0463

== ENCOUNTER 2025-04-14 09:01 | Outpatient (RCR) | payer MEDICAID, SELFPAY ==
[2025-04-14 11:09] LABS: Basophils # (Auto) 0.0 Thou/mm3 (0.0-0.2); Basophils % (Auto) 1 % (0-2.5); Eosinophils # (Auto) 0.1 Thou/mm3 (0.0-0.5); Eosinophils % (Auto) 2 % (0-10); Hematocrit 35.2 % (36.0-46.0); Hemoglobin 11.0 g/dL (12.0-16.0); Immature Granulocytes Auto 0.01 Thou/mm3 (0.00-0.00); Lymphocytes # (Auto) 1.0 Thou/mm3 (1.0-4.8); Lymphocytes % (Auto) 25 % (10-50); Mean Corpuscular HGB Conc 31.3 g/dl (31.0-37.0); Mean Corpuscular Hemoglobin 27.2 pg (25.0-35.0); Mean Corpuscular Volume 87 fL (80-100); Monocytes # (Auto) 0.3 Thou/mm3 (0.0-0.8); Monocytes % (Auto) 6 % (0-12); Neutrophils # (Auto) 2.7 Thou/mm3 (1.8-7.7); Neutrophils % (Auto) 66 % (37-80); Nucleated Red Blood Cell # 0.00 Thou/mm3 (0.00-0.00); Nucleated Red Blood Cell % 0 /100 WBC (0); Platelet Count 192 Thou/mm3 (140-440); RDW Standard Deviation 51.9 fL (36.4-46.3); Red Blood Count 4.04 Miln/mm3 (4.00-5.20); White Blood Count 4.1 Thou/mm3 (3.6-11.0)
[2025-04-14 11:43] LABS: Ferritin 8 ng/mL (7.3-270.7); Folate 5.65 ng/mL (>5.38); Iron 29 mcg/dL (50-170); Percent Iron Saturation 8 % (20-55); Total Iron Binding Capacity 328 mcg/dL (250-425); Unsaturated Iron Binding 299 (225-295); Vitamin B12 595 pg/mL (211-911)
[2025-04-14 11:52] LABS: Alanine Aminotransferase 7 U/L (10-49); Albumin, Serum 4.2 gm/dL (3.4-4.8); Albumin/Globulin Ratio 1.8 (1.2-2.2); Alkaline Phosphatase 84 U/L (46-116); Anion Gap 8 (7-16); Aspartate Amino Transferase 14 U/L (0-34); BUN/Creatinine Ratio 16 Ratio (12-20); Bilirubin,Total 0.2 mg/dL (0.3-1.2); Blood Urea Nitrogen 13 mg/dL (9-23); Calcium 9.0 mg/dL (8.3-10.6); Calcium (Corrected) 9.0 mg/dL (8.5-10.1); Carbon Dioxide 30.3 mMol/L (20.0-31.0); Chloride 102 mMol/L (98-107); Creatinine (Component) 0.8 mg/dL (0.6-1.3); Globulin 2.3 gm/dL (2.3-3.5); Glucose 97 mg/dL (74-106); Osmolality,Calculated 279 (275-295); Potassium 4.2 mMol/L (3.4-5.1); Sodium 140 mMol/L (136-145); Total Protein 6.5 gm/dL (5.7-8.2); eGFR > 60 See Note
== END 2025-04-24 23:59 | disposition home or self-care (01) ==
LOC: SCTC 09:01
PROVIDERS: PCP Physician Assistant; Referring Provider Physician Assistant; Visit Provider Internal Medicine Hematology & Oncology
DX: Z08 Encounter for follow-up examination after completed treatment for malignant neoplasm (principal); Z85.41 Personal history of malignant neoplasm of cervix uteri; Z92.21 Personal history of antineoplastic chemotherapy; Z92.3 Personal history of irradiation
CPT/HCPCS: 36591; 80053; 82607; 82728; 82746; 83540; 83550; 85025; A4216; J1642

== ENCOUNTER 2025-05-16 08:03 | Outpatient (RCR) | payer MEDICAID, SELFPAY | END 2025-05-25 23:59 | disposition home or self-care (01) | LOC: SCTC 08:03 | PROVIDERS: PCP Student in an Organized Health Care Education/Training Program; Referring Provider Physician Assistant; Visit Provider Internal Medicine Hematology & Oncology | DX: Z08 Encounter for follow-up examination after completed treatment for malignant neoplasm (principal); Z85.41 Personal history of malignant neoplasm of cervix uteri; Z92.3 Personal history of irradiation; Z92.21 Personal history of antineoplastic chemotherapy; E04.2 Nontoxic multinodular goiter; E89.0 Postprocedural hypothyroidism | CPT/HCPCS: 36591; 96365; A4216; J1642; J1756; J3490; J7040 ==